=== PATIENT | male | born 2000 | race Caucasian/White ===

== ENCOUNTER 2022-11-21 21:05 | Emergency (ER) | payer OTHER ==
[~2022-11-21] VITALS: Ht 175.3 cm; Wt 95.3 kg
[2022-11-21 21:16] VITALS: BP_SYST 116
--- NOTE | 2022-11-21 21:25 | NUR ---
Patient to ER bed 05 to gown for evaluation. Side rails up. Report given to MONALISA ROMERO.
--- NOTE | 2022-11-21 21:27 | NUR ---
Patient BIBA from home for attempting suicide by taking multiple pills of Melatonin, Allertec, and zyrtec at around 1730 today. Sandip MERAZ put him on a 5150 hold for DTS that started at 11/21/22 at 2054. Patient is alert and oriented, speaking in full sentences and denied any acute distress at this time.
[2022-11-21] MEDS ORDERED: ONDANSETRON HCL 4 MG/2 ML VIAL IVP ONE (21:30)
[2022-11-21] MEDS ORDERED: NACL 0.9% 1,000 ML IV ONE ×2 (21:30→23:00)
[2022-11-21 21:49] LABS: BASOPHILS % (AUTO) 0.4 % (0.0-2.0); EOSINOPHILS # (AUTO) 0.1 K/uL (0.0-0.4); EOSINOPHILS % (AUTO) 1.3 % (0.0-4.0); HEMATOCRIT 45.8 % (36-54); HEMOGLOBIN 15.6 g/dL (14.0-18.0); LYMPHOCYTES # (AUTO) 2.6 K/uL (1.0-5.5); LYMPHOCYTES % (AUTO) 28.9 % (20.5-51.5); MEAN CORPUSCULAR HEMOGLOBIN 30 pg (27-31); MEAN CORPUSCULAR HGB CONC 34 % (32-36); MEAN CORPUSCULAR VOLUME 87 fL (79.0-98.0); MONOCYTES # (AUTO) 0.7 K/uL (0.0-1.0); MONOCYTES % (AUTO) 7.3 % (1.7-9.3); NEUTROPHILS # (AUTO) 5.6 K/uL (1.8-7.7); NEUTROPHILS % (AUTO) 62.1 % (40.0-70.0); PLATELET COUNT (AUTO) 258 K/uL (130-430); RED BLOOD CELL COUNT(AUTO) 5.27 MIL/uL (4.2-6.2); RED CELL DISTRIBUTION WIDTH 13.1 % (9.0-15.0); WHITE BLOOD COUNT (AUTO) 9.1 K/uL (4.5-11.0)
--- NOTE | 2022-11-21 22:02 | NUR ---
Placed a call to poison control at [phone], spoke with [place]. States Melatonin is not really much of a concern, expect drowsiness. However with Antihistamines, observe for seizures, EKG changes, QT changes (widened). If there is QTC of >500, give Magnesium 1 Gram. Lab draw: Tylenol, ASA, drug screen, potassium and calcium level if there is prolonged QT. Repeat EKG after 4 hours, place on rn cardiac cath, monitor patient for 6 hours then re-evaluate.
[2022-11-21 22:10] LABS: ACETAMINOPHEN 19 ug/mL (1-30); ALANINE AMINOTRANSFERASE 25 U/L (12-78); ALBUMIN 3.8 g/dL (3.4-4.8); ANION GAP 6 (5-15); ASPARTATE AMINOTRANSFERASE 21 U/L (10-37); CALCIUM 9.2 mg/dL (8.4-11.0); CHLORIDE 106 mmol/L (98-107); CREATININE 1.22 mg/dL (0.55-1.30); GFR AFRICAN AMERICAN 97 mL/min (>90); GLUCOSE 102 mg/dL (70-99); TOTAL BILIRUBIN 0.4 mg/dL (0.0-1.0); UREA NITROGEN, BLOOD 12 mg/dL (8-21)
[2022-11-21 22:11] LABS: ALCOHOL, BLOOD < 3 mg/dL (<10)
--- NOTE | 2022-11-21 22:15 | NUR ---
ER at bedside examining patient.
[2022-11-21 23:27] LABS: BILIRUBIN,URINE NEGATIVE (NEGATIVE); BLOOD, URINE NEGATIVE (NEGATIVE); CLARITY/URINE CLEAR (CLEAR); COLOR,URINE YELLOW (YELLOW); GLUCOSE,URINE NEGATIVE (NEGATIVE); KETONES,URINE NEGATIVE (NEGATIVE); LEUKOCYTE ESTERASE ,URINE NEGATIVE (NEGATIVE); NITRITE, URINE NEGATIVE (NEGATIVE); PH,URINE 6.5 (5.0-8.0); PROTEIN URINE NEGATIVE (NEGATIVE)
[2022-11-21 23:58] LABS: BARBITURATE, URINE NEGATIVE (NEG <=200); BENZODIAZEPINE, URINE NEGATIVE (NEG <=150); CANNABINOID, URINE NEGATIVE (NEG <=50); COCAINE, URINE NEGATIVE (NEG <=150); METHAMPHETAMINES SCREEN,URINE POSITIVE (NEG <=500); OPIATE, URINE NEGATIVE (NEG <=100); PHENCYCLIDINE SCREEN,URINE NEGATIVE (NEG <=25); UR TRICYCLIC ANTIDEPRESSANTS NEGATIVE (NEG <=300); URINE AMPHETAMINE NEGATIVE (NEG <=500); URINE METHADONE NEGATIVE (NEG <=200); URINE OXYCODONE SCREEN NEGATIVE (NEG <=100); URINE PROPOXYPHENE SCREEN NEGATIVE (NEG <=300)
--- NOTE | 2022-11-22 01:23 | NUR ---
Poison Control called back for patient's update. Spoke with Eze who recommended to continue monitoring patient for a total of 6 hours.
[2022-11-22] MEDS ORDERED: MAGNESIUM SULFATE/D5W 100 ML IV ONE (06:00)
[2022-11-22] MEDS ORDERED: NACL 0.9% 1,000 ML IV ONE (06:00)
--- NOTE | 2022-11-22 07:11 | NUR ---
Report given and care transferred to Elsi LIFT TEAM TECHNICIAN for continuity of care.
--- NOTE | 2022-11-22 08:28 | NUR ---
GAETANO VILLARREAL BEDSIDE 1:1 MONITORING. [facility] ACCEPTED PT FOR [place]. REPORT CALLED TO MONALISA MCNAIR AT [phone]
--- NOTE | 2022-11-22 08:37 | NUR ---
PT IS BEING SENT TO [facility], ROOM 2204. ACCEPTING PHYSICIAN IS .
--- NOTE | 2022-11-22 08:45 | NUR ---
Note undone in EDM - 11/22/22 at 1027 by [email or web address] Patient to be transferred to [facility]. Is being transferred due to higher level of care. Receiving facility has accepting physician and available space. ER physician has signed transfer form. Patient or responsible libertarian has agreed to transfer and signed form. Patient belongings inventoried and will be sent with patient. Copy of nursing notes, lab reports, EKG, Physicians Orders and X-rays to be sent with patient. Report called to RN at receiving facility. Receiving physician is ambulance service has been called for transfer. ETA is [id number]
--- NOTE | 2022-11-22 09:40 | NUR ---
Advised by ED that the patient is a suicide risk who is in the process of being transferred to a [place] in patient psyche facility on a 5150 hold. At the time of my visit to the ED, the patient was being placed on the gurney for transfer. The patient was not seen by psychotherapist social worker.
--- NOTE | 2022-11-22 09:45 | NUR ---
pt transferred to [facility] via ambulance. Pt father went with pt. Pt understands reason for transfer. Pt VSS upon transfer.
--- NOTE | 2022-11-22 09:55 | NUR ---
Patient to be transferred to [facility]. Is being transferred due to higher level of care. Receiving facility has accepting physician and available space. ER physician has signed transfer form. Patient or responsible democrat has agreed to transfer and signed form. Patient belongings inventoried and will be sent with patient. Copy of nursing notes, lab reports, EKG, Physicians Orders and X-rays to be sent with patient. Report called to RN at receiving facility. Receiving physician is ambulance service has been called for transfer. ETA is [id number]
[2022-11-22 10:20] VITALS: BP_SYST 118
== END 2022-11-22 10:20 | disposition short-term general hospital (02) ==
LOC: SED 21:05
DX: T14.91XA Suicide attempt, initial encounter (principal); T45.0X1A Poisoning by antiallergic and antiemetic drugs, accidental (unintentional), initial encounter; Z79.899 Other long term (current) drug therapy; Z20.822 Contact with and (suspected) exposure to COVID-19; Y92.89 Other specified places as the place of occurrence of the external cause
CPT/HCPCS: 99285; 96361; 96375; 87426; 80307; 80053; 85025; 84484; 36415; 93005 ×2; 81003; 96365; G0482; J2405; J7030; G0480; G0481